=== PATIENT | female | born 1950 | race Caucasian/White ===

== ENCOUNTER 2017-08-12 13:09 | Inpatient (IN) | payer MEDICARE ==
[~2017-08-12] VITALS: Ht 157.5 cm; Wt 50.9 kg
[2017-08-12] MEDS ORDERED: SODIUM CHLORIDE 0.9% 1,000ML IVBOLUS ONE (14:00)
[2017-08-12] MEDS ORDERED: SODIUM CHLORIDE FLUSH 10ML SYR IVF ONE (14:00)
[2017-08-12] MEDS ORDERED: PLEASE ENTER ALLERGIES MC SCH (14:00)
[2017-08-12] MEDS ORDERED: HYDROmorphone 1 MG/ML, 1ML IVPush PRN (14:00)
[2017-08-12 14:31] LABS: MEAN CORPUSCULAR HEMOGLOBIN 32.6 pg (27.0-34.8); MEAN CORPUSCULAR VOLUME 95.9 fL (80-100); MEAN PLATELET VOLUME 7.7 fL (7.4-10.4); PLATELET COUNT 248 x10^3/uL (130-400); RED BLOOD COUNT 3.75 x10^6/uL (3.82-5.3); RED CELL DISTRIBUTION WIDTH 14.2 % (9.6-15.2)
[2017-08-12 14:39] LABS: CALCIUM 8.1 mg/dL (8.5-10.1); CHLORIDE 105 mmol/L (98-107)
[2017-08-12] MEDS ORDERED: LEVO75TA PO (14:40)
[2017-08-12] MEDS ORDERED: VENL25TA PO (14:40)
[2017-08-12 14:42] LABS: MD YES
[2017-08-12] MEDS ORDERED: FENT-58 TD (14:42)
[2017-08-12 14:46] LABS: ALANINE AMINOTRANSFERASE 17 U/L (12-78); ALBUMIN 2.9 g/dL (3.4-5.0); ALKALINE PHOSPHATASE 74 U/L (45-117); ANION GAP 11 mmol/L (5-15); BILIRUBIN,TOTAL 0.4 mg/dL (0.2-1.0); CREATININE 5.95 mg/dL (0.55-1.02); TOTAL PROTEIN 6.9 g/dL (6.4-8.2)
[2017-08-12] MEDS ORDERED: OXYC-307 PO (14:49)
[2017-08-12] MEDS ORDERED: AMLO10TA2 PO (14:49)
[2017-08-12] MEDS ORDERED: LISI-167 PO (14:50)
[2017-08-12] MEDS ORDERED: TIZA4CAP2 PO (14:50)
[2017-08-12 15:14] LABS: BAND#(MANUAL) 2.74 x10^3/uL; BANDS%(MANUAL) 28 % (0-7); LYMPH#(MANUAL) 1.18 x10^3/uL (1-3.4); LYMPHS% (MANUAL) 12 % (22-44); METAMYELOCYTES% (MANUAL) 2 % (0-1); MONOS#(MANUAL) 1.37 x10^3/uL (0.3-2.7); MONOS% (MANUAL) 14 % (2-9); SEG#(MANUAL) 4.31 x10^3/uL (1.8-6.8); SEGS% (MANUAL) 44 % (42-75)
[2017-08-12 15:15] LABS: <PLATELET ESTIMATE> ADEQUATE; <PLT MORPHOLOGY> NORMAL PLT MORPH; <RBC MORPHOLOGY> NORMAL
[2017-08-12] MEDS ORDERED: INSULIN REGULAR 100 UNITS/ML, 3ML VIAL IVPush ONE (15:30)
[2017-08-12] MEDS ORDERED: DEXTROSE 50%, 50ML SYRINGE IVPush ONE (15:30)
[2017-08-12] MEDS ORDERED: INSULIN REGULAR 100 UNITS/ML, 3ML VIAL ONE (15:47)
[2017-08-12] MEDS ORDERED: DEXTROSE 50%, 50ML SYRINGE ONE (15:47)
[2017-08-12] MEDS ORDERED: SODIUM CHLORIDE 0.9% 1,000 ML IV ONE (17:30)
[2017-08-12] MEDS ORDERED: D5%-LACTATED RINGERS 1,000 ML IV SCH (17:30)
[2017-08-12 17:44] VITALS: BP 100/49
[2017-08-12 17:55] VITALS: BP 109/51
[2017-08-12] MEDS ORDERED: HYDROmorphone 2 MG/ML, 1ML ONE (18:37)
[2017-08-12] MEDS: SODIUM BICARBONATE 8.4% 150 MEQ in DEXTROSE 5% 1,000 ML IV SCH (18:41)
[2017-08-12] MEDS: HYDROmorphone 1 MG/ML, 1ML IV PRN (18:41)
[2017-08-12 19:40] VITALS: BP 109/51
[2017-08-12] MEDS: FAMOTIDINE 20 MG/2 ML IVPush SCH (21:49)
[2017-08-13 00:37] VITALS: BP 96/55
[2017-08-13 03:14] LABS: MICROSCOPIC AUTO
[2017-08-13 03:15] LABS: CULTURE INDICATED? NO
[2017-08-13] MEDS ORDERED: HYDROmorphone 2 MG/ML, 1ML ONE ×5 (04:53→21:22)
[2017-08-13] MEDS: HYDROmorphone 1 MG/ML, 1ML IV PRN ×5 (04:55→22:19)
[2017-08-13 05:27] LABS: CHLORIDE 108 mmol/L (98-107)
[2017-08-13 05:40] LABS: % IRON SATURATION 30 % (20-55); ALANINE AMINOTRANSFERASE 13 U/L (12-78); ALBUMIN 2.3 g/dL (3.4-5.0); ALKALINE PHOSPHATASE 58 U/L (45-117); ANION GAP 9 mmol/L (5-15); BILIRUBIN,TOTAL 0.3 mg/dL (0.2-1.0); CALCIUM 7.7 mg/dL (8.5-10.1); CREATININE 3.22 mg/dL (0.55-1.02); IRON LEVEL 62 mcg/dL (50-170); TOTAL IRON BINDING CAPACITY 205 mcg/dL (250-450); TOTAL PROTEIN 5.4 g/dL (6.4-8.2)
[2017-08-13 07:35] VITALS: BP 104/53
[2017-08-13 07:37] VITALS: BP 104/53
[2017-08-13] MEDS: SODIUM BICARBONATE 8.4% 150 MEQ in DEXTROSE 5% 1,000 ML IV SCH ×2 (09:36→19:43)
[2017-08-13] MEDS: FAMOTIDINE 20 MG/2 ML IVPush SCH (09:37)
[2017-08-13] MEDS ORDERED: PROMETHAZINE 25 MG/ML, 1ML IM PRN (13:30)
[2017-08-13 14:36] VITALS: BP 132/68
[2017-08-13] MEDS: HEPARIN 5,000 UNITS/ML, 1ML SQ SCH (19:44)
[2017-08-13 21:00] VITALS: BP 130/87
[2017-08-13 21:37] VITALS: BP 140/67
[2017-08-14] MEDS ORDERED: HYDROmorphone 2 MG/ML, 1ML ONE ×4 (01:56→12:25)
[2017-08-14] MEDS: SODIUM BICARBONATE 8.4% 150 MEQ in DEXTROSE 5% 1,000 ML IV SCH (01:58)
[2017-08-14] MEDS: HYDROmorphone 1 MG/ML, 1ML IV PRN ×4 (01:58→12:31)
[2017-08-14 02:00] VITALS: BP 142/75
[2017-08-14] MEDS: ONDANSETRON 2MG/ML, 2ML IVPush PRN (04:47)
[2017-08-14 06:06] LABS: BASOPHILS % (AUTO) 0 % (0-1); EOSINOPHILS # (AUTO) 0.08 x10^3/uL (0-0.4); EOSINOPHILS % (AUTO) 2 % (1-7); LYMPHOCYTES # (AUTO) 1.09 x10^3/uL (1-3.4); LYMPHOCYTES % (AUTO) 25 % (22-44); MD NO; MEAN CORPUSCULAR HEMOGLOBIN 32.9 pg (27.0-34.8); MEAN CORPUSCULAR HGB CONC 34.7 g/dL (32.4-35.8); MEAN CORPUSCULAR VOLUME 94.8 fL (80-100); MEAN PLATELET VOLUME 7.1 fL (7.4-10.4); MONOCYTES # (AUTO) 0.68 x10^3/uL (0.2-0.8); MONOCYTES % (AUTO) 16 % (2-9); NEUTROPHILS # (AUTO) 2.45 x10^3/uL (1.8-6.8); NEUTROPHILS % (AUTO) 57 % (42-75); PLATELET COUNT 180 x10^3/uL (130-400); RED BLOOD COUNT 3.34 x10^6/uL (3.82-5.3); RED CELL DISTRIBUTION WIDTH 14.2 % (9.6-15.2)
[2017-08-14 06:16] LABS: ANION GAP 5 mmol/L (5-15); CALCIUM 7.9 mg/dL (8.5-10.1); CHLORIDE 102 mmol/L (98-107); CREATININE 1.39 mg/dL (0.55-1.02)
[2017-08-14 06:17] LABS: ALBUMIN 2.4 g/dL (3.4-5.0)
[2017-08-14] MEDS: HEPARIN 5,000 UNITS/ML, 1ML SQ SCH ×2 (09:26→21:02)
[2017-08-14] MEDS: FAMOTIDINE 20 MG/2 ML IVPush SCH (09:26)
[2017-08-14 09:33] VITALS: BP 130/71
[2017-08-14] MEDS: FENTANYL 25 MCG PATCH TD SCH (11:30)
[2017-08-14] MEDS ORDERED: FENTANYL 25 MCG PATCH ONE (11:42)
[2017-08-14] MEDS: POTASSIUM CHLORIDE 20 MEQ in LACTATED RINGERS 1,000 ML IV SCH (12:30)
[2017-08-14] MEDS ORDERED: [UNRECOGNIZED DRUG - REMARK] MC PRN (12:30)
[2017-08-14] MEDS: OXYcodone/APAP 10/325MG TABLET PO PRN ×2 (13:01→21:02)
[2017-08-14 13:16] VITALS: BP 152/68
[2017-08-14] MEDS: TIZANIDINE 4MG TABLET PO SCH ×2 (16:00→21:02)
[2017-08-14] MEDS ORDERED: OXYcodone/APAP 10/325MG TABLET PO SCH (16:00)
[2017-08-14] MEDS: HYDROmorphone 2 MG/ML, 1ML IV PRN ×2 (17:14→23:36)
[2017-08-14 19:55] VITALS: BP 139/77
[2017-08-15] MEDS: POTASSIUM CHLORIDE 20 MEQ in LACTATED RINGERS 1,000 ML IV SCH (01:47)
[2017-08-15 02:10] VITALS: BP 144/78
[2017-08-15] MEDS: HYDROmorphone 2 MG/ML, 1ML IV PRN ×5 (03:35→22:28)
[2017-08-15] MEDS: TIZANIDINE 4MG TABLET PO SCH ×4 (06:13→20:24)
[2017-08-15 08:00] VITALS: BP 139/72
[2017-08-15] MEDS: FAMOTIDINE 20 MG/2 ML IVPush SCH (08:34)
[2017-08-15] MEDS: HEPARIN 5,000 UNITS/ML, 1ML SQ SCH ×2 (08:34→20:24)
[2017-08-15 09:31] LABS: ANION GAP 5 mmol/L (5-15); CALCIUM 8.6 mg/dL (8.5-10.1); CHLORIDE 100 mmol/L (98-107); CREATININE 1.14 mg/dL (0.55-1.02)
[2017-08-15 12:21] VITALS: BP 168/89
[2017-08-15] MEDS: POTASSIUM CHLORIDE 20 MEQ in SODIUM CHLORIDE 0.45% 1,000 ML IV SCH (13:53)
[2017-08-15 20:01] VITALS: BP 150/81
[2017-08-15] MEDS: OXYcodone/APAP 10/325MG TABLET PO PRN (20:24)
[2017-08-16] MEDS: HYDROmorphone 2 MG/ML, 1ML IV PRN (02:21)
[2017-08-16] MEDS: POTASSIUM CHLORIDE 20 MEQ in SODIUM CHLORIDE 0.45% 1,000 ML IV SCH (02:22)
[2017-08-16 02:32] VITALS: BP 143/72
[2017-08-16 04:42] LABS: BASOPHILS # (AUTO) 0.01 x10^3/uL (0-0.1); BASOPHILS % (AUTO) 0 % (0-1); EOSINOPHILS # (AUTO) 0.15 x10^3/uL (0-0.4); EOSINOPHILS % (AUTO) 3 % (1-7); LYMPHOCYTES % (AUTO) 33 % (22-44); MD NO; MEAN CORPUSCULAR HEMOGLOBIN 32.5 pg (27.0-34.8); MEAN CORPUSCULAR HGB CONC 33.8 g/dL (32.4-35.8); MEAN CORPUSCULAR VOLUME 96.2 fL (80-100); MEAN PLATELET VOLUME 7.1 fL (7.4-10.4); MONOCYTES # (AUTO) 0.56 x10^3/uL (0.2-0.8); MONOCYTES % (AUTO) 12 % (2-9); NEUTROPHILS # (AUTO) 2.51 x10^3/uL (1.8-6.8); NEUTROPHILS % (AUTO) 52 % (42-75); PLATELET COUNT 209 x10^3/uL (130-400); RED BLOOD COUNT 3.86 x10^6/uL (3.82-5.3); RED CELL DISTRIBUTION WIDTH 13.8 % (9.6-15.2)
[2017-08-16 04:47] LABS: ALANINE AMINOTRANSFERASE 23 U/L (12-78); CALCIUM 8.6 mg/dL (8.5-10.1); CREATININE 1.16 mg/dL (0.55-1.02)
[2017-08-16 04:49] LABS: ALKALINE PHOSPHATASE 72 U/L (45-117); BILIRUBIN,TOTAL 0.4 mg/dL (0.2-1.0); TOTAL PROTEIN 6.7 g/dL (6.4-8.2)
[2017-08-16 05:05] LABS: ANION GAP 4 mmol/L (5-15); CHLORIDE 104 mmol/L (98-107)
[2017-08-16] MEDS: TIZANIDINE 4MG TABLET PO SCH ×4 (05:49→20:10)
[2017-08-16] MEDS ORDERED: MAGNESIUM SULFATE PMX 4GM/100M 100 ML IV ONE (07:00)
[2017-08-16 08:02] VITALS: BP 181/86
[2017-08-16] MEDS: FAMOTIDINE 20 MG/2 ML IVPush SCH (08:23)
[2017-08-16] MEDS: HEPARIN 5,000 UNITS/ML, 1ML SQ SCH ×2 (08:24→20:11)
[2017-08-16] MEDS ORDERED: ERGOCALCIFEROL 50,000 UNIT CAPSULE PO SCH (11:00)
[2017-08-16] MEDS: morphine SULFATE 10 MG/ML, 1ML IVPush PRN ×3 (11:47→22:18)
[2017-08-16 13:26] VITALS: BP 180/99
[2017-08-16] MEDS: ONDANSETRON 2MG/ML, 2ML IVPush PRN (14:32)
[2017-08-16] MEDS ORDERED: AMLODIPINE 5 MG TABLET PO ONE (18:00)
[2017-08-16] MEDS ORDERED: LISINOPRIL 10 MG TABLET PO ONE (18:00)
[2017-08-16] MEDS ORDERED: METHYLNALTREXONE 12 MG/0.6 ML SQ SCH (18:00)
[2017-08-16 18:18] VITALS: BP 146/73
[2017-08-16] MEDS: OXYcodone/APAP 10/325MG TABLET PO PRN (20:10)
[2017-08-16 20:16] VITALS: BP 158/94
[2017-08-17] MEDS ORDERED: DIPHENHYDRAMINE 25 MG CAPSULE PO ONE (00:30)
[2017-08-17] MEDS: OXYcodone/APAP 10/325MG TABLET PO PRN (00:32)
[2017-08-17 01:02] VITALS: BP 133/83
[2017-08-17] MEDS: LEVOTHYROXINE 75 MCG TABLET PO SCH (04:33)
[2017-08-17] MEDS: morphine SULFATE 10 MG/ML, 1ML IVPush PRN ×5 (04:33→20:28)
[2017-08-17] MEDS: TIZANIDINE 4MG TABLET PO SCH ×4 (05:21→20:28)
[2017-08-17 07:25] LABS: ALANINE AMINOTRANSFERASE 26 U/L (12-78); ALBUMIN 3.3 g/dL (3.4-5.0); ANION GAP 7 mmol/L (5-15); CALCIUM 8.6 mg/dL (8.5-10.1); CHLORIDE 103 mmol/L (98-107); CREATININE 1.28 mg/dL (0.55-1.02)
[2017-08-17 07:27] LABS: ALKALINE PHOSPHATASE 85 U/L (45-117); BILIRUBIN,TOTAL 0.4 mg/dL (0.2-1.0); TOTAL PROTEIN 7.4 g/dL (6.4-8.2)
[2017-08-17 08:00] VITALS: BP 163/81
[2017-08-17] MEDS: FAMOTIDINE 20 MG/2 ML IVPush SCH (08:23)
[2017-08-17] MEDS: HEPARIN 5,000 UNITS/ML, 1ML SQ SCH ×2 (09:00→20:28)
[2017-08-17] MEDS: AMLODIPINE 5 MG TABLET PO SCH (09:00)
[2017-08-17] MEDS: LISINOPRIL 10 MG TABLET PO SCH (09:00)
[2017-08-17] MEDS: VENLAFAXINE 25MG TABLET PO SCH (09:00)
[2017-08-17] MEDS: FENTANYL 25 MCG PATCH TD SCH (13:03)
[2017-08-17 13:29] VITALS: BP 186/76
[2017-08-17] MEDS ORDERED: DIPHENHYDRAMINE 50 MG/ML, 1ML IVPush ONE (14:30)
[2017-08-17 19:39] VITALS: BP 138/75
[2017-08-17] MEDS ORDERED: DIPHENHYDRAMINE 25 MG CAPSULE ONE (20:49)
[2017-08-17] MEDS: DIPHENHYDRAMINE 25 MG CAPSULE PO PRN (20:51)
[2017-08-18 00:13] VITALS: BP 149/80
[2017-08-18] MEDS: morphine SULFATE 10 MG/ML, 1ML IVPush PRN ×5 (00:47→21:18)
[2017-08-18] MEDS: DIPHENHYDRAMINE 25 MG CAPSULE PO PRN ×2 (04:19→23:06)
[2017-08-18 05:23] LABS: ALBUMIN 3.1 g/dL (3.4-5.0); ANION GAP 7 mmol/L (5-15); CALCIUM 8.9 mg/dL (8.5-10.1); CHLORIDE 102 mmol/L (98-107)
[2017-08-18 05:28] LABS: ALANINE AMINOTRANSFERASE 22 U/L (12-78); ALKALINE PHOSPHATASE 73 U/L (45-117); BILIRUBIN,TOTAL 0.4 mg/dL (0.2-1.0); CREATININE 1.28 mg/dL (0.55-1.02); TOTAL PROTEIN 6.8 g/dL (6.4-8.2)
[2017-08-18] MEDS: TIZANIDINE 4MG TABLET PO SCH ×4 (06:34→21:18)
[2017-08-18] MEDS: LEVOTHYROXINE 75 MCG TABLET PO SCH (06:34)
[2017-08-18 06:35] VITALS: BP 147/71
[2017-08-18] MEDS: LISINOPRIL 10 MG TABLET PO SCH (08:59)
[2017-08-18] MEDS: VENLAFAXINE 25MG TABLET PO SCH (08:59)
[2017-08-18] MEDS: FAMOTIDINE 20 MG/2 ML IVPush SCH (09:00)
[2017-08-18] MEDS: AMLODIPINE 5 MG TABLET PO SCH (09:00)
[2017-08-18] MEDS: HEPARIN 5,000 UNITS/ML, 1ML SQ SCH ×2 (09:00→21:18)
[2017-08-18 12:41] VITALS: BP 169/85
[2017-08-18] MEDS: ONDANSETRON 2MG/ML, 2ML IVPush PRN (13:29)
[2017-08-18 20:12] VITALS: BP 150/74
[2017-08-19 02:15] VITALS: BP 154/74
[2017-08-19] MEDS: morphine SULFATE 10 MG/ML, 1ML IVPush PRN ×4 (03:36→21:32)
[2017-08-19] MEDS: TIZANIDINE 4MG TABLET PO SCH ×4 (06:10→21:43)
[2017-08-19] MEDS: LEVOTHYROXINE 75 MCG TABLET PO SCH (06:11)
[2017-08-19] MEDS: FAMOTIDINE 20 MG/2 ML IVPush SCH (07:56)
[2017-08-19] MEDS: LISINOPRIL 10 MG TABLET PO SCH (07:57)
[2017-08-19] MEDS: AMLODIPINE 5 MG TABLET PO SCH (07:57)
[2017-08-19] MEDS: VENLAFAXINE 25MG TABLET PO SCH (07:57)
[2017-08-19] MEDS: HEPARIN 5,000 UNITS/ML, 1ML SQ SCH ×2 (07:57→21:43)
[2017-08-19 08:20] VITALS: BP 157/83
[2017-08-19] MEDS: ONDANSETRON 2MG/ML, 2ML IVPush PRN (11:26)
[2017-08-19] MEDS: OXYcodone/APAP 10/325MG TABLET PO PRN (11:26)
[2017-08-19 13:59] VITALS: BP 116/67
[2017-08-19 19:49] VITALS: BP 142/73
[2017-08-19] MEDS: DIPHENHYDRAMINE 25 MG CAPSULE PO PRN (21:43)
[2017-08-20 00:47] VITALS: BP 125/73
[2017-08-20] MEDS: morphine SULFATE 10 MG/ML, 1ML IVPush PRN ×2 (03:58→11:13)
[2017-08-20] MEDS: LEVOTHYROXINE 75 MCG TABLET PO SCH (05:27)
[2017-08-20] MEDS: TIZANIDINE 4MG TABLET PO SCH ×2 (05:27→11:13)
[2017-08-20] MEDS: DIPHENHYDRAMINE 25 MG CAPSULE PO PRN (05:27)
[2017-08-20 06:27] VITALS: BP 131/71
[2017-08-20] MEDS: AMLODIPINE 5 MG TABLET PO SCH (08:38)
[2017-08-20] MEDS: VENLAFAXINE 25MG TABLET PO SCH (08:38)
[2017-08-20] MEDS: LISINOPRIL 10 MG TABLET PO SCH (08:38)
[2017-08-20] MEDS: HEPARIN 5,000 UNITS/ML, 1ML SQ SCH (08:38)
[2017-08-20] MEDS: FAMOTIDINE 20 MG/2 ML IVPush SCH (08:38)
[2017-08-20] MEDS: OXYcodone/APAP 10/325MG TABLET PO PRN (08:49)
[2017-08-20] MEDS: ONDANSETRON 2MG/ML, 2ML IVPush PRN ×2 (09:40→13:49)
[2017-08-20] MEDS: FENTANYL 25 MCG PATCH TD SCH (13:00)
== END 2017-08-20 14:38 | disposition home or self-care (01) | DRG 388 ==
LOC: ED 15:00 → EDIP 16:21 → 4EST 17:37
PROVIDERS: ADMIT Hospitalist; ATTEND Family Medicine
PROC: 3E1H78Z Irrigation of Lower GI using Irrigating Substance, Via Natural or Artificial Opening (ICD-10-PCS; principal; 2017-08-17)
DX: K56.600 Partial intestinal obstruction, unspecified as to cause (principal); N17.0 Acute kidney failure with tubular necrosis; E87.2 Acidosis; E87.4 Mixed disorder of acid-base balance; E87.5 Hyperkalemia; F11.20 Opioid dependence, uncomplicated; K50.90 Crohn's disease, unspecified, without complications; K56.7 Ileus, unspecified; I12.9 Hypertensive chronic kidney disease with stage 1 through stage 4 chronic kidney disease, or unspecified chronic kidney disease; Z79.891 Long term (current) use of opiate analgesic; D64.9 Anemia, unspecified; E03.9 Hypothyroidism, unspecified; E86.1 Hypovolemia; F32.9 Major depressive disorder, single episode, unspecified; G89.29 Other chronic pain; M41.9 Scoliosis, unspecified; N18.3 Chronic kidney disease, stage 3 (moderate); N27.0 Small kidney, unilateral; Z87.891 Personal history of nicotine dependence; Z93.2 Ileostomy status
CPT/HCPCS: 36415; 74176; 74245; 76700; 80048; 80053; 80069; 81001; 82306; 82728; 82962; 83540; 83550; 83690; 83735; 83970; 84100; 85025; 96361; 96374; 96375; J1170; J1644; J2405; J2550; J3480; J7070; J1200; J2270; J3475; J7030; J7120; Q0163; S0028